=== PATIENT | male | born 1995 | race Caucasian/White ===

== ENCOUNTER 2019-04-26 08:26 | Outpatient (CLI) | payer OTHER, SELFPAY ==
--- NOTE | 2019-04-26 08:20 | DI.RAD_ITS ---
SYMPTOM/DIAGNOSIS: H/O FX, F/U RIGHT ANKLE: Two views. Comparison is made with 01/26/17. There are post surgical changes in the right leg, ankle and foot. The distal aspect of an intramedullary viri is seen in the right tibia. There are screws seen in the distal tibia which appear intact. There are also orthopedic screws and arianne seen in the talus and calcaneus. There is deformity of the distal tibia and talus consistent with old healed fractures. The bones appear osteopenic suggesting decreased use. No definite acute fracture is seen. The soft tissues are unremarkable. RIGHT FOOT: Three views. Comparison is made with 01/26/17. There are post surgical changes consistent with old tibial and talar fractures. No evidence of hardware failure is seen. There are arianne seen in the base of the first metatarsal. No acute fracture or dislocation is appreciated. Secondary degenerative changes are seen at the ankle joint. Mild degenerative changes are seen at the talonavicular joint. The bones appear mildly osteopenic. The soft tissues are unremarkable.
== END 2019-04-26 08:46 ==
PROVIDERS: PCP Nurse Practitioner Family; Visit Provider Student in an Organized Health Care Education/Training Program
DX: M24.574 Contracture, right foot (principal); S82.201D Unspecified fracture of shaft of right tibia, subsequent encounter for closed fracture with routine healing; M85.88 Other specified disorders of bone density and structure, other site; Z47.89 Encounter for other orthopedic aftercare
CPT/HCPCS: 73600; 73630

== ENCOUNTER 2019-06-30 01:49 | Outpatient (CLI) | payer OTHER, SELFPAY ==
--- NOTE | 2019-06-30 13:33 | DI.CT_ITS ---
SYMPTOMS/DIAGNOSIS: RIGHT ANKLE CONTRACTURE, H/O TALUS FX, CAVOVARUS FOOT , RIGHT ANKLE ARTHRITIS, M24.571, M19.071, S92.101A, S82.201B, S82.[address]: CT examination of the ankle was performed with multislice acquisition and multiplanar reconstruction. Fixation apparatus of tibia, talus, calcaneus and 1st metatarsal base noted in position. Previously noted fractures appear fairly well healed by CT criteria. Mild bony deformity noted at multiple sites, no erosive or destructive process. CONCLUSION: Findings consistent with healed fractures as described above. Moderate degenerative arthritis of tibiotalar joint. Mild degenerative arthritis of subtalar joint, talonavicular joint and to a lesser degree other joints of the mid foot.
== END 2019-06-30 02:09 ==
PROVIDERS: PCP Nurse Practitioner Family; Visit Provider Student in an Organized Health Care Education/Training Program
DX: M19.071 Primary osteoarthritis, right ankle and foot (principal); M24.571 Contracture, right ankle; S82.201B Unspecified fracture of shaft of right tibia, initial encounter for open fracture type I or II; S82.401B Unspecified fracture of shaft of right fibula, initial encounter for open fracture type I or II; S92.101A Unspecified fracture of right talus, initial encounter for closed fracture
CPT/HCPCS: 73700